=== PATIENT | male | born 1995 | race Caucasian/White ===

== ENCOUNTER 2017-09-01 04:46 | Emergency (ER) | payer MEDICAID ==
[~2017-09-01] VITALS: Ht 177.8 cm; Wt 106.6 kg
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
--- NOTE | 2017-09-01 04:56 | NUR ---
DELORIS QUINTANA AT BEDSIDE TO JENNA LORENZO.
[2017-09-01] MEDS ORDERED: HYDROCODONE/APAP 5/325MG 1 EACH TABLET ONE (05:15)
--- NOTE | 2017-09-01 05:17 | NUR ---
PT MEDICATED ORDERED.
[2017-09-01] MEDS ORDERED: HYDROCODONE/APAP 5/325MG 1 EACH TABLET PO ONE (05:30)
--- NOTE | 2017-09-01 06:13 | NUR ---
PT STILL C/O R SHOULDER PAIN 05/28. ER MD MADE AWARE WITH ORDERS RECEIVED. WILL CARRY OUT ORDERS.
[2017-09-01] MEDS ORDERED: MORPHINE SULFATE INJ 4 MG/ML DISP.SYRIN ONE (06:14)
--- NOTE | 2017-09-01 06:17 | NUR ---
MORPHINE 4MG IM GIVEN TO THE LEFT DELTOID PER DR PERSAUD'S VERBAL ORDER FOR C/O PT'S RIGHT SHOULDER PAIN.
--- NOTE | 2017-09-01 06:43 | NUR ---
DR. LESTER AT BEDSIDE TO JENNA PT.
[2017-09-01] MEDS ORDERED: ONDANSETRON HCL/PF 4 MG/2 ML VIAL ONE (06:58)
[2017-09-01] MEDS ORDERED: HYDROMORPHONE INJ 2 MG/ML DISP.SYRIN ONE (06:59)
[2017-09-01] MEDS ORDERED: ONDANSETRON HCL/PF 4 MG/2 ML VIAL IVP ONE (07:00)
[2017-09-01] MEDS ORDERED: MORPHINE SULFATE INJ 2 MG/ML DISP.SYRIN IM ONE (07:00)
[2017-09-01] MEDS ORDERED: HYDROMORPHONE INJ 2 MG/ML DISP.SYRIN IV ONE ×2 (07:00)
--- NOTE | 2017-09-01 07:04 | NUR ---
REPORT GIVEN TO SIDNEY REID.
--- NOTE | 2017-09-01 07:05 | NUR ---
RECEIVED REPORT FOR SYLVIA.
--- NOTE | 2017-09-01 07:08 | NUR ---
PATIENT TAKEN TO CT VIA WHEELCHAIR.
--- NOTE | 2017-09-01 07:20 | NUR ---
PATIENT RETURNED FROM CT IN STABLE CONDITION.
[2017-09-01] MEDS ORDERED: FENTANYL PF 100MCG/2ML AMPUL ONE (07:54)
[2017-09-01] MEDS ORDERED: MIDAZOLAM HCL 5 MG/5ML VIAL ONE (07:55)
[2017-09-01] MEDS ORDERED: MIDAZOLAM HCL 2 MG/2ML VIAL IV ONE (08:00)
[2017-09-01] MEDS ORDERED: FENTANYL PF 100MCG/2ML AMPUL IV ONE (08:00)
[2017-09-01] MEDS ORDERED: IV NS 0.9% 1,000 ML BAG IV ONE (08:00)
--- NOTE | 2017-09-01 08:03 | NUR ---
PATIENT CONSENTED FOR CLOSED REDUCTION OF RIGHT SHOULDER. DR. LESTER AT BEDSIDE FOR PROCEDURE.
--- NOTE | 2017-09-01 08:15 | NUR ---
CLOSED REDUCTION UNSUCCESSFUL. PATIENTS VITALS REMAIN STABLE, WILL CONTINUE TO MONITOR.
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
[2017-09-01 08:29] LABS: BASOPHILS % (AUTO) 0.1 % (0.0-2.0); EOSINOPHILS % (AUTO) 0.1 % (0.0-6.0); HEMATOCRIT 43 % (39-51); HEMOGLOBIN 15.1 g/dL (13.5-17.5); LYMPHOCYTES % (AUTO) 7.4 % (20.0-44.0); MEAN CORPUSCULAR HEMOGLOBIN 28 PG (26.0-33.0); MEAN CORPUSCULAR HGB CONC 35 g/dl (31.0-36.0); MEAN CORPUSCULAR VOLUME 80 fL (80-96); MONOCYTES # (AUTO) 0.6 /CMM (0.1-1.30); MONOCYTES % (AUTO) 4.3 % (2.0-12.0); NEUTROPHILS # (AUTO) 12.1 /CMM (1.8-8.9); NEUTROPHILS % (AUTO) 88.1 % (43.0-81.0); PLATELET COUNT (AUTO) 243 /CMM (150-450); RDW COEFFICIENT OF VARIATION 12.8 (11.5-15.0); RED BLOOD CELL COUNT(AUTO) 5.34 MIL/uL (4.5-6.0); WHITE BLOOD COUNT (AUTO) 13.8 K/uL (4.3-11.0)
[2017-09-01 08:38] LABS: CALCIUM, SERUM 9.2 mg/dL (8.5-10.1); POTASSIUM 3.9 mmol/L (3.5-5.1)
[2017-09-01] MEDS ORDERED: PROPOFOL 20 ML IV ONE (08:50)
[2017-09-01 08:54] LABS: INR 0.96 (0.87-1.13)
[2017-09-01] MEDS ORDERED: PROPOFOL 200 MG/20 ML VIAL IV ONE ×2 (09:00→09:30)
--- NOTE | 2017-09-01 09:05 | NUR ---
CLOSED REDUCTION ATTEMPTED SECOND TIME WITH DR. SMITH AT BEDSIDE. TOTAL OF 160MG OF PROPOFOL ADMINISTERED VIA MD ORDERS. REDUCTION UNSUCCESSFUL. WILL F/U WITH MD ORDERS.
--- NOTE | 2017-09-01 09:11 | NUR ---
Called [employer], spoke to Rose billingsley spoke to Nurse Gonzalez
--- NOTE | 2017-09-01 09:44 | NUR ---
PATIENT TRANSFERRED TO OR FOR ANOTHER ATTEMPT AT REDUCTION WITH DR. SMITH. PATIENT SIGNED SURGICAL CONSENT PACKET. VSS. WILL MONITOR UPON RETURN.
[2017-09-01] MEDS ORDERED: SUCCINYLCHOLINE CHLORIDE 20 MG/ML VIAL ONE (09:57)
--- NOTE | 2017-09-01 10:00 | NUR ---
PATIENT DISCHARGED FROM ER TO SAME DAY SURGERY. PATIENT TO BE DISCHARGED HOME FROM DAY SURGERY.
--- NOTE | 2017-09-01 10:40 | NUR ---
PT CAME BACK FROM DAY SURGERY S/P REDUCTION OF RT CARLITO. PLACED ON CONT MONITORING
[2017-09-01 11:00] VITALS: BP 138/91
--- NOTE | 2017-09-01 11:00 | NUR ---
IV removed. Catheter intact and site benign. Pressure and 4x4 applied to site. No bleeding noted. Patient discharged to home in stable condition. Written and verbal after care instructions given. Patient verbalizes understanding of instruction.
== END 2017-09-01 09:45 | disposition home or self-care (01) ==
LOC: ER 04:51 → UNDOADMIN 09:52 → MED 09:52
DX: S43.014A Anterior dislocation of right humerus, initial encounter (principal); F10.10 Alcohol abuse, uncomplicated; W22.8XXA Striking against or struck by other objects, initial encounter; Y93.89 Activity, other specified; Y92.89 Other specified places as the place of occurrence of the external cause; Y99.8 Other external cause status
CPT/HCPCS: 23650; 36415; 71045; 73020 ×2; 73200; 80048; 85025; 85730; 93005; 96361; 96372; 96374; 96375; 99152; 99285; A4565; A4606; J0330; J1170; J2250; J2270; J2405; J2704 ×2; J3010; J7030; Z7610; A6402